=== PATIENT | female | born 1970 | race African-American/Black ===

== ENCOUNTER 2021-08-19 00:21 | Emergency (ER) | payer OTHER ==
[~2021-08-19] VITALS: Ht 175.3 cm; Wt 90.3 kg
--- NOTE | 2021-08-19 00:34 | NUR ---
PATIENT BIBSELF C/O ABSCESS ON LEFT FOOT ABOVE 5TH DIGIT SINCE YESTERDAY. PATIENT IS A/O X 4 RR EVEN AND UNLABORED, NO SOB NOTED. PATIENT TAKEN TO ER BED 02
[2021-08-19] MEDS ORDERED: SULF1TAB48 PO (00:38)
[2021-08-19] MEDS ORDERED: CEPH500T PO (00:38)
[2021-08-19] MEDS ORDERED: LIDOCAINE HCL/PF 2 % 5ML SDV 5 ML VIAL ONE (00:40)
--- NOTE | 2021-08-19 00:54 | NUR ---
Patient discharged to home in stable condition. Written and verbal after care instructions given. Patient verbalizes understanding of instruction.
[2021-08-19 00:55] VITALS: BP 139/87
== END 2021-08-19 00:54 | disposition home or self-care (01) ==
LOC: EDUNIT# 00:21 → ER 00:24 → EDBD 00:24 → ER 00:54
DX: L02.512 Cutaneous abscess of left hand (principal); L02.612 Cutaneous abscess of left foot; Z79.899 Other long term (current) drug therapy
CPT/HCPCS: 26010; 99283; J3490

== ENCOUNTER 2025-04-02 00:31 | Inpatient (IN) | payer OTHER ==
[~2025-04-02] VITALS: Ht 172.7 cm; Wt 86.2 kg
[~2025-04-02 00:31] MED LIST: CEPH500T PO; SULF1TAB48 PO
[2025-04-02] MEDS ORDERED: ONDANSETRON HCL/PF 4 MG/2 ML VIAL ONE (00:59)
[2025-04-02] MEDS ORDERED: MORPHINE SULFATE INJ 4 MG/ML DISP.SYRIN ONE (00:59)
[2025-04-02] MEDS: ONDANSETRON HCL/PF 4 MG/2 ML VIAL IVP ONE (01:05)
[2025-04-02] MEDS: IV NS 0.9% 1,000 ML BAG IV ONE (01:05)
[2025-04-02] MEDS ORDERED: KETOROLAC TROMETHAMINE 15 MG/ML VIAL ONE ×2 (01:07→01:08)
[2025-04-02] MEDS: MORPHINE SULFATE INJ 2 MG/ML DISP.SYRIN IV ONE ×2 (01:09→03:29)
[2025-04-02] MEDS: KETOROLAC TROMETHAMINE INJ 30 MG/ML VIAL IV ONE (01:09)
[2025-04-02 01:16] LABS: PLATELET COUNT (AUTO) 240 K/uL (150-450); RED BLOOD CELL COUNT(AUTO) 4.85 MIL/uL (4.0-5.2); RED CELL DISTRIBUTION WIDTH 13.9 % (11.5-15.0); WHITE BLOOD COUNT (AUTO) 6.2 K/uL (4.3-11.0)
[2025-04-02 01:23] LABS: CALCIUM, SERUM 9.0 mg/dL (8.5-10.1); CREATININE 1.3 mg/dL (0.6-1.3); SODIUM SERUM 140 mmol/L (136-145); UREA NITROGEN, BLOOD 11 mg/dL (7-18)
[2025-04-02 01:28] LABS: ASPARTATE AMINOTRANSFERASE 15 U/L (15-37); TOTAL PROTEIN, SERUM 6.5 g/dL (6.4-8.2)
[2025-04-02] MEDS ORDERED: IOHEXOL-300 100 ML VIAL IV ONE (03:02)
[2025-04-02] MEDS ORDERED: CT SWABBABLE VALVE TRANS SET 1 EA INFUS.SET MC ONE (03:02)
[2025-04-02] MEDS ORDERED: IV NS 0.9% 250 ML IV ONE (03:03)
[2025-04-02] MEDS ORDERED: DIATR MEGLU/DIATRIZOATE SODIUM 120 ML BOTTLE (GASTROGRAPHIN) ONE (03:04)
[2025-04-02] MEDS ORDERED: MORPHINE SULFATE INJ 2 MG/ML DISP.SYRIN ONE (03:25)
[2025-04-02 03:27] LABS: APPEARANCE,URINE CLEAR (CLEAR); BLOOD, URINE TRACE-INTA Ery/uL (NEGATIVE); LEUKOCYTE ESTERASE ,URINE TRACE (NEGATIVE); NITRITE, URINE NEGATIVE (NEGATIVE); UGLUCOSE NEGATIVE (NEGATIVE)
[2025-04-02 03:32] LABS: INR 0.98 (0.91-1.10)
[2025-04-02] MEDS ORDERED: ASPIRIN 325 MG TABLET ONE (03:36)
[2025-04-02] MEDS ORDERED: PANTOPRAZOLE 40 MG VIAL ONE (03:36)
[2025-04-02 03:37] LABS: COARSE GRANULAR CASTS,URINE Moderate /LPF (None Seen)
[2025-04-02 03:38] LABS: ADD URINE CULTURE YES; SQUAMOUS EPITHELIAL CELL,UR Moderate /HPF (None Seen)
[2025-04-02] MEDS: PANTOPRAZOLE 40 MG VIAL IV ONE (03:41)
[2025-04-02] MEDS: PIPERACILLIN /TAZOBACTAM 3.375 G in IV D5W 50 ML IV ONE (03:41)
[2025-04-02] MEDS: ASPIRIN 325 MG TABLET PO ONE (03:42)
[2025-04-02] MEDS ORDERED: MAG HYDROX/AL HYDROX/SIMETH 30 ML UDC PO PRN (06:00)
[2025-04-02] MEDS ORDERED: MAGNESIUM HYDROXIDE 30 ML UDC PO PRN (06:00)
[2025-04-02] MEDS ORDERED: ACETAMINOPHEN 325 MG TABLET PO PRN (06:00)
[2025-04-02] MEDS ORDERED: ZOLPIDEM TARTRATE 5 MG TABLET PO PRN (06:00)
[2025-04-02] MEDS ORDERED: Z GUARD REMEDY 4 OZ OINT TP PRN (06:00)
[2025-04-02] MEDS ORDERED: DOSING PER PHARMACY-ZOSYN IV 1 EA EA XX PRN (06:00)
[2025-04-02 06:37] VITALS: BP 120/82; TEMP 98.2; O2SAT 98
[2025-04-02 08:00] VITALS: BP 112/84; TEMP 98.6; O2SAT 97
[2025-04-02] MEDS ORDERED: ANESTHESIA TRAY IN PYXIS 1 EA TRAY MC ONE ×2 (08:10→16:01)
[2025-04-02] MEDS: PANTOPRAZOLE 40 MG VIAL IV SCH ×2 (08:28→18:05)
[2025-04-02] MEDS: HYDROMORPHONE 1 MG/1 ML DISP.SYRIN IV PRN (08:28)
[2025-04-02 08:30] LABS: PLATELET COUNT (AUTO) 266 K/uL (150-450); RED BLOOD CELL COUNT(AUTO) 5.12 MIL/uL (4.0-5.2); RED CELL DISTRIBUTION WIDTH 13.8 % (11.5-15.0); WHITE BLOOD COUNT (AUTO) 6.1 K/uL (4.3-11.0)
[2025-04-02 08:36] LABS: ASPARTATE AMINOTRANSFERASE 12.0 U/L (15-37); CALCIUM, SERUM 8.6 mg/dL (8.5-10.1); CREATININE 1.3 mg/dL (0.6-1.3); LDL 71.0 mg/dL (0-99); PHOSPHORUS 3.9 mg/dL (2.5-4.9); SODIUM SERUM 138.0 mmol/L (136-145); TOTAL PROTEIN, SERUM 6.3 g/dL (6.4-8.2); UREA NITROGEN, BLOOD 11.0 mg/dL (7-18)
[2025-04-02] MEDS ORDERED: FENTANYL PF 250MCG/5ML AMPUL ONE (09:39)
[2025-04-02] MEDS ORDERED: MIDAZOLAM HCL 2 MG/2ML VIAL ONE (09:40)
[2025-04-02] MEDS ORDERED: SUGAMMADEX SODIUM 200 MG/2 ML VIAL IV ONE (09:40)
[2025-04-02] MEDS ORDERED: ROCURONIUM BROMIDE 50 MG/5 ML ONE (09:40)
[2025-04-02] MEDS ORDERED: FAMOTIDINE/PF INJ 20 MG/2 ML VIAL IV ONE (09:40)
[2025-04-02] MEDS ORDERED: BUPIVACAINE 0.5 % PF 150 MG/30 ML VIAL ONE ×2 (09:54→11:02)
[2025-04-02] MEDS: PIPERACILLIN /TAZOBACTAM 3.375 G in IV D5W 100 ML IV SCH (10:54)
[2025-04-02] MEDS ORDERED: ALBUMIN 5% 250 ML IV ONE (10:57)
[2025-04-02] MEDS ORDERED: MORPHINE SULFATE INJ 2 MG/ML DISP.SYRIN IM PRN (12:30)
[2025-04-02] MEDS ORDERED: MORPHINE SULFATE INJ 4 MG/ML DISP.SYRIN IM PRN (12:30)
[2025-04-02 13:15] VITALS: BP 137/99; O2SAT 100
[2025-04-02] MEDS ORDERED: ETOMIDATE 2 MG/ML VIAL IV ONE (14:46)
[2025-04-02] MEDS ORDERED: SUCCINYLCHOLINE CHLORIDE 20 MG/ML VIAL IV ONE (14:47)
[2025-04-02] MEDS: IV D5/0.45 NACL 1,000 ML IV PRN (15:32)
[2025-04-02 16:00] VITALS: BP 124/79; TEMP 98.1; O2SAT 96
[2025-04-02 20:00] VITALS: BP 131/89; TEMP 97.3; O2SAT 97
[2025-04-03] VITALS: BP 103/70; TEMP 98.1; O2SAT 100
[2025-04-03 04:00] VITALS: BP 122/65; TEMP 97.5; O2SAT 99
[2025-04-03 07:10] LABS: PLATELET COUNT (AUTO) 217 K/uL (150-450); RED BLOOD CELL COUNT(AUTO) 4.21 MIL/uL (4.0-5.2); RED CELL DISTRIBUTION WIDTH 13.7 % (11.5-15.0); WHITE BLOOD COUNT (AUTO) 13.3 K/uL (4.3-11.0)
[2025-04-03 07:19] LABS: CALCIUM, SERUM 8.2 mg/dL (8.5-10.1); CREATININE 1.2 mg/dL (0.6-1.3); PHOSPHORUS 4.5 mg/dL (2.5-4.9); SODIUM SERUM 141.0 mmol/L (136-145); UREA NITROGEN, BLOOD 15.0 mg/dL (7-18)
[2025-04-03 08:00] VITALS: BP 134/92; TEMP 99.5; O2SAT 98
[2025-04-03] MEDS ORDERED: JEVITY 1.2 CAL 1,000 ML BOTTLE GT SCH (08:00)
[2025-04-03 12:00] VITALS: BP 134/92; TEMP 98.9; O2SAT 98
[2025-04-03] MEDS: JEVITY 1.2 CAL 1,000 ML BOTTLE GT SCH (14:04)
[2025-04-03 16:00] VITALS: BP 126/76; TEMP 99.3; O2SAT 96
[2025-04-03 20:00] VITALS: BP 130/84; TEMP 98.8; O2SAT 98
[2025-04-04 00:52] VITALS: BP 133/86; TEMP 99.1; O2SAT 95
[2025-04-04 04:39] VITALS: BP 149/90; TEMP 98.4; O2SAT 97
[2025-04-04 06:35] LABS: PLATELET COUNT (AUTO) 257 K/uL (150-450); RED BLOOD CELL COUNT(AUTO) 4.26 MIL/uL (4.0-5.2); RED CELL DISTRIBUTION WIDTH 13.8 % (11.5-15.0); WHITE BLOOD COUNT (AUTO) 12.6 K/uL (4.3-11.0)
[2025-04-04 06:49] LABS: CALCIUM, SERUM 8.5 mg/dL (8.5-10.1); CREATININE 0.9 mg/dL (0.6-1.3); PHOSPHORUS 2.8 mg/dL (2.5-4.9); SODIUM SERUM 138.0 mmol/L (136-145); UREA NITROGEN, BLOOD 11.0 mg/dL (7-18)
[2025-04-04 08:00] VITALS: BP 141/88; TEMP 98.4; O2SAT 99
[2025-04-04 12:00] VITALS: BP 141/88; TEMP 98.4; O2SAT 99
[2025-04-04 16:00] VITALS: BP 124/88; TEMP 98.4; O2SAT 97
[2025-04-04 20:00] VITALS: BP 120/91; TEMP 97.3; O2SAT 100
[2025-04-05] VITALS: BP 120/91; TEMP 97.3; O2SAT 100
[2025-04-05 04:00] VITALS: BP 158/93; TEMP 97.5; O2SAT 100
[2025-04-05 06:25] LABS: PLATELET COUNT (AUTO) 278 K/uL (150-450); RED BLOOD CELL COUNT(AUTO) 4.22 MIL/uL (4.0-5.2); RED CELL DISTRIBUTION WIDTH 13.4 % (11.5-15.0); WHITE BLOOD COUNT (AUTO) 10.4 K/uL (4.3-11.0)
[2025-04-05 06:36] LABS: CALCIUM, SERUM 9.0 mg/dL (8.5-10.1); CREATININE 0.9 mg/dL (0.6-1.3); PHOSPHORUS 3.3 mg/dL (2.5-4.9); SODIUM SERUM 142.0 mmol/L (136-145); UREA NITROGEN, BLOOD 8.0 mg/dL (7-18)
[2025-04-05 09:38] VITALS: BP 139/95; TEMP 98.4; O2SAT 98
[2025-04-05] MEDS: GUAIFENESIN/D-METHORPHAN HB 5 ML UDC PO PRN (12:01)
[2025-04-05] MEDS ORDERED: DIATR MEGLU/DIATRIZOATE SODIUM 120 ML BOTTLE (GASTROGRAPHIN) ONE (12:37)
[2025-04-05] MEDS: ONDANSETRON HCL/PF 4 MG/2 ML VIAL IVP PRN (14:20)
[2025-04-05 15:04] VITALS: BP 139/95; TEMP 98.4; O2SAT 98
[2025-04-05 18:10] VITALS: BP 135/94; TEMP 97.7; O2SAT 97
[2025-04-05 20:00] VITALS: BP 138/86; TEMP 98.4; O2SAT 99
[2025-04-06 04:00] VITALS: BP 135/82; TEMP 98.6; O2SAT 98
[2025-04-06 07:30] LABS: PLATELET COUNT (AUTO) 305 K/uL (150-450); RED BLOOD CELL COUNT(AUTO) 4.25 MIL/uL (4.0-5.2); RED CELL DISTRIBUTION WIDTH 13.3 % (11.5-15.0); WHITE BLOOD COUNT (AUTO) 7.7 K/uL (4.3-11.0)
[2025-04-06 09:05] LABS: CALCIUM, SERUM 9.2 mg/dL (8.5-10.1); CREATININE 1.0 mg/dL (0.6-1.3); PHOSPHORUS 4.5 mg/dL (2.5-4.9); SODIUM SERUM 143.0 mmol/L (136-145); UREA NITROGEN, BLOOD 11.0 mg/dL (7-18)
[2025-04-06 12:00] VITALS: BP 139/97; TEMP 98.2; O2SAT 98
[2025-04-06] MEDS ORDERED: GUAIFENESIN/D-METHORPHAN HB 5 ML UDC PO PRN (17:30)
[2025-04-06 20:00] VITALS: BP 125/85; TEMP 98; O2SAT 98
[2025-04-07 04:00] VITALS: BP 120/80; TEMP 98.4; O2SAT 99
[2025-04-07 12:00] VITALS: BP 161/90; TEMP 98.4; O2SAT 92
[2025-04-07] MEDS ORDERED: PANT40TA2 PO (12:38)
== END 2025-04-07 14:20 | disposition home or self-care (01) | DRG 220 ==
LOC: ER 00:33 → TELE1 04:45 → MEDSG1 04-03 07:44
PROVIDERS: ADMIT Nurse Practitioner Acute Care
PROC: 0DQ60ZZ Repair Stomach, Open Approach (ICD-10-PCS; principal; 2025-04-02 10:00)
DX: K25.5 Chronic or unspecified gastric ulcer with perforation (principal); I21.4 Non-ST elevation (NSTEMI) myocardial infarction; E44.1 Mild protein-calorie malnutrition; K29.70 Gastritis, unspecified, without bleeding; E88.09 Other disorders of plasma-protein metabolism, not elsewhere classified; N39.0 Urinary tract infection, site not specified; E66.9 Obesity, unspecified; Z68.28 Body mass index [BMI] 28.0-28.9, adult; R73.9 Hyperglycemia, unspecified
CPT/HCPCS: 36415; 71045-TC; 74018; 74246-TC; 80048-TC; 80053-TC; 80061-TC; 80076-TC; 81001; 83605-TC; 83690-TC; 83735-TC; 84100-TC; 84443-TC; 84484-TC; 85025-TC; 85610-TC; 85730-TC; 86850-TC; 87086-TC; 93307-TC; A4223; A6209; A6223; A6253; A6254; A6403; A6407; G0378; J0330; J0690; J1100; J1171; J1308; J1885; J2250; J2270; J2405; J2470; J2543; J2704; J2765; J3010; J3490; J7030; J7050; J7060; P9045; Q9963; Q9967